=== PATIENT | male | born 1985 | race African-American/Black ===

== ENCOUNTER → 2017-10-23 | Outpatient (CLI) | payer OTHER ==
[2017-10-24 10:29] LABS: RUBELLA IgG QUALITATIVE IMMUNE (IMMUNE)
[2017-10-24 10:41] LABS: HEPATITIS B SURFACE ANTIBODY POSITIVE (POSITIVE)
[2017-10-25 08:11] LABS: HERPES ZOSTER, VARICELLA IgG 3515 index (Immune >165)
== END ==
LOC: M WUC 11:44
DX: Z11.59 Encounter for screening for other viral diseases (principal)

== ENCOUNTER → 2017-10-30 | Outpatient (REF) | payer OTHER ==
[2017-10-31 10:20] LABS: MISCELLANEOUS TEST LAB See Separate Report
[2017-10-31 14:44] LABS: MISCELLANEOUS TEST LAB See Separate Report
== END ==
LOC: M LAB REF 11:29
DX: Z11.59 Encounter for screening for other viral diseases (principal)